=== PATIENT | female | born 1950 | race Caucasian/White ===

== ENCOUNTER 2023-12-25 22:09 | Emergency (ER) | payer MEDICARE, SELFPAY ==
--- NOTE | ~2023-12-25 | CT_ITS ---
EXAMINATION: CT angio head neck CT/CT angio head neck FINDINGS/IMPRESSION: The ordered CT angiogram examination could not be performed due to contrast extravasation. No images were obtained.
--- NOTE | ~2023-12-25 | CT_ITS ---
EXAMINATION: NONCONTRAST HEAD CT NONCONTRAST CERVICAL SPINE CT INDICATION INFORMATION: Head and neck trauma COMPARISON: None TECHNIQUE: Separate noncontrast CT examinations of the head and cervical spine were performed. Coronal head CT images and coronal and sagittal cervical spine images were created at the technologist workstation. DLP: 1150 mGy-cm DOSE LOWERING TECHNIQUES: This CT examination was performed using dose optimization techniques as appropriate, variously including the following: - Automated exposure control - Adjustment of mA and/or kV according to patient size (this includes techniques or standardized protocols for targeted exams were dose is matched to indication/reason for exam; i.e. extremities or head) - Use of iterative reconstruction technique FINDINGS: Head: Bilateral predominantly frontal subdural hematomas are present, measuring up to approximately 6 mm in thickness on the left and 4 mm in thickness on the right. Mild extension along the right parafalcine falx superiorly. Relatively symmetric subarachnoid hemorrhage is also present bilaterally, predominantly in the frontal lobes. There is intraparenchymal hemorrhage in the inferior right cerebellum measuring approximately 20 mm in diameter with mild surrounding edema. There is no evidence of acute territorial infarction. No significant mass-effect or midline shift is seen. Bañuelos to white matter differentiation is well preserved. The ventricles are normal in size. There is mild periventricular white matter hypoattenuation consistent with chronic small vessel ischemic disease. There is a nondisplaced right occipital bone fracture. Mild mucosal thickening of the right maxillary sinus. The mastoid air cells are well-aerated. Cervical spine: There is grade 1 anterolisthesis of C3 on C4 and C4 on C5, favored to be chronic/degenerative in nature. Vertebral body heights are maintained. Severe bilateral multilevel facet arthropathy. There is disc space narrowing and endplate osteophyte formation in the lower cervical spine. No evidence of acute fracture. No prevertebral soft tissue swelling. Visualized portions of the lung apices are unremarkable. The thyroid gland is heterogeneous, suboptimally assessed due to artifact. CT/CT cervical spine wo IV con IMPRESSION: HEAD: Bilateral, predominantly frontal subdural hematomas and bilateral subarachnoid hemorrhage. Intraparenchymal hemorrhage in the inferior right cerebellum. Nondisplaced right occipital bone fracture. CERVICAL SPINE: No acute findings identified. Multilevel degenerative changes. This critical result was discussed with Dr. Sandra Devries on 12/26/2023 1:05 AM, and it was ascertained that the content and urgency of the report was understood at the time of direct communication.
--- NOTE | 2023-12-25 22:24 | MHC.EDTECH ---
PATIENT WAS BIBA FROM WORK ,VITALS TAKEN AND BLOOD SUGAR CHECK .
[2023-12-25 22:27] VITALS: BP 154/94; BP 155/83; PULSE 92; PULSE 93; RESP 16; TEMP 36.6; O2SAT 95; BMI 35.7
--- NOTE | 2023-12-25 22:48 | ECG_ITS ---
Test Reason : SYNCOPEE Blood Pressure : / mmHG Vent. Rate : 097 BPM Atrial Rate : 097 BPM P-R Int : 184 ms QRS Dur : 086 ms QT Int : 364 ms P-R-T Axes : 057 -25 043 degrees QTc Int : 462 ms Normal sinus rhythm Normal ECG No previous ECGs available Referred By: Sandra Devries Electronically Signed By:Eron Evans
[2023-12-25 22:51] LABS: Glucose, Whole Blood 179 mg/dL (60-115)
--- NOTE | 2023-12-25 23:03 | ED_ITS ---
HPI - Syncope General Chief Complaint: Syncope Stated Complaint: syncopal episode, +headstrike,+loc Time Seen by Provider: 12/25/23 22:39 Source: patient, family and EMS Mode of arrival: EMS Limitations: no limitations History of Present Illness HPI narrative: 73 yo female with PMH of DM not on thinners had lower dental extraction today with implant done today (local no anesthesia) she took an aspirin due to the pain. She noted it was oozing mildly and she kept tasting the blood which she thinks was making her queasy. 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 She started to feel dizzy and had syncopal episode. + LOC pos head strike unknown downtime. Denies preceding CP/SOB. Currently feels fine. 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[employer]) Prodromal symptoms: lightheaded and nausea/vomiting Witnessed: No Context: standing up Injuries sustained associated with event: head Current symptoms: none History: other (had tooth extraction today) Treatments prior to arrival: none Related Data Allergies Allergy/AdvReac Type Severity Reaction Status Date / Time codeine Allergy Nausea and Verified 12/25/23 22:30 Vomiting ibuprofen Allergy Hives Verified 12/25/23 22:30 Review of Systems 2 Review of Systems: Constitutional : No Fever, No Chills, No Fatigue ENT/Mouth : No sore throat, No Rhinorrhea Eyes: No Eye Pain, No Swelling, No Redness Cardiovascular : No Chest Pain, No SOB, No Dyspnea on Exertion Respiratory : No Cough, No Sputum Gastrointestinal : No Nausea, No Vomiting, No Diarrhea, No abdominal Pain Genitourinary : No Dysuria, No Urinary Frequency, No Hematuria, Musculoskeletal : No joint pain, No Myalgias, No Joint Swelling Skin : No Skin Lesions, No rash Neuro : No Weakness, No Numbness, No Dizziness, no Headache, pos syncope Psych : No Anxiety/Panic, No Depression All other systems reviewed and are negative [facility] Past Medical History Attestation statement: The following information was validated with the patient. Medical History Diabetes Social History Social History (Updated 12/25/23 @ 23:07 by Sandra Devries DO) Patient Tobacco Use Status: Never used Tobacco Advance Directives: No Advance Directives Information Provided: Yes Do you have a plan to hurt others: No Plan Physical Exam 2 Vital Signs: Vital Signs: Last Vital Signs Temp 97.6 F 12/26/23 00:42 Pulse 106 H 12/26/23 00:47 Resp 13 12/26/23 00:47 BP 142/63 H 12/26/23 00:47 Pulse Ox 94 12/26/23 00:47 O2 Del Method Room Air 12/26/23 00:47 BMI result Body Mass Index 35.7 Appearance: Alert. Oriented X3. No acute distress. Playing candy [employer] game on phone Eyes: Pupils equal, round and reactive to light. ENT: Pharynx normal. Hematoma to occipital area no lacerations noted lower tooth from extraction scant to trace area of blood noted Neck: Normal inspection. Neck supple. collar in place no midline ttp CVS: Normal heart rate and rhythm. Pulses normal. Chest: no ttp Respiratory: No respiratory distress. Breath sounds normal. Abdomen: Soft and nontender. Skin: Skin warm and dry. Normal skin color. Normal skin turgor. Extremities: No lower extremity edema. No calf ttp Neuro: Oriented X 3. No motor deficit. No sensory deficit. GCS 15 NIH Stroke Scale Internal: Initial- Upon Arrival Level of Consciousness: Alert Level of Consciousness Questions: Answers both questions correctly Level of Consciousness Commands: Performs both tasks correctly Best Gaze: Normal Visual: No visual loss Facial Palsy: Normal Motor Arm (Right): No drift Motor Arm (Left): No drift Motor Leg (Right): No drift Motor Leg (Left): No drift Limb Ataxia: Absent Sensory: Normal Best Language: No aphasia Dysarthia: Normal Extinction and Inattention: No abnormality Score: 0 Course Course Course Narrative: call to [facility] 1128pm given ICH she is GCS 15 has SAH in frontal lobes but also R cerebellum there is a bleed IPH which seems odd for trauma she reports feeling fine all day today no prior headaches or issues Reevaluation(s) Reevaluation #1: son is here notes mom had an episode 2 weeks ago of severe dizziness and vomiting left work symptoms went away and she has been fine since patient denies headaches or dizziness this could have been cerebellar lesion Reevaluation #2: call back from [facility] 1159pm trauma unavailable at this time call to ED Attending Zulay - accepts to the ED. aware of nicardipine gtt. no trauma activation. spoke to RN goal BP 140 systolic Reevaluation #3: obtained CTA prior to transfer radio electrician to upload to trauma box Additional Reevaluation(s): IV blew in CTA I placed another in CT scanner L AC no issues - she vomited denies headaches still GCS 15 at this time EMS is here will delay transfer I am also going to give her IV keppra along with nicardipine, zofran ordered 1240am BP 140/60s on transfer still no call from our radiology team unable to get CTA prior to DC after vomiting still awake and answering questions c/o mild headache now. Consultations Consultation #1: 105am call from Radiology - SAH bilateral SDH frontal 6mm and 4mm on right symmetric SAH mostly frontal lobe, IPH R cerebellum localized edema nondisplaced R occipital bone fracture cervical spine negative for fracture. delayed read on CT scans after multiple calls Medications Administered Generic Name Dose Route Start Last Admin Trade Name Freq PRN Reason Stop Dose Admin Nicardipine HCl 25 mg/ Sodium 260 mls @ 0 mls/hr 12/25/23 23:45 12/26/23 00:14 Chloride IVCONT 5 mg/hr .Q0M POLLY 52 mls/hr Administration Protocol Per Protocol Discontinued Medications Generic Name Dose Route Start Last Admin Trade Name Freq PRN Reason Stop Dose Admin Sodium Chloride 500 mls @ 500 mls/hr 12/25/23 23:00 12/25/23 23:29 Ns IV 12/25/23 23:59 500 mls/hr .Q1H ONE Administration Levetiracetam 1,000 mg in 100 mls @ 400 mls/hr 12/26/23 00:39 12/26/23 01:03 Keppra IV 12/26/23 00:53 Infused ONCE ONE Infusion Tranexamic Acid 500 mg 12/25/23 23:00 12/25/23 23:32 Tranexamic Acid 1,000 Mg/10 Ml Vial IRRIGATION 12/25/23 23:01 500 mg ONCE ONE Administration Medical Decision Making Medical Decision Making MDM Narrative: 73 yo female with PMH of DM here after syncopal episode with prodrome of nausea and dizziness no preceding CP/SOB was standing when it happened - occurred after having dental extraction today and reported scant oozing of blood from tooth and getting nauseated from tasting blood. She did take aspirin today but not on thinners. She still has trace ooze. At this time labs, EKG, troponin x 2 ordered, CT head/neck given trauma and age, ortho VS, IVF, oral tranexamic acid to help with any further transient bleeding given her story it sounds more consistent with vasovagal syncope and not cardiac or VTE. Differential Diagnosis Differential Diagnoses: The differential diagnosis associated with the presentation includes dehydration, vasovagal syncope, anemia, head injury Admission/Observation Consideration of admission/observation: Escalation of care including admission/observation considered transfer to tertiary center Consult Healthcare Provider Management of the patient was discussed with: Loom Fixer Lab Data [facility] Lab Attestation statement: I reviewed the patient's lab results. 12/25/23 23:16 12/25/23 23:16 Labs: Lab Results 12/25/23 12/25/23 Range/Units 22:23 23:16 WBC 9.0 (4.8-10.8) X10*3/uL RBC 4.99 (4.20-5.50) X10*6/uL Hgb 15.1 (12.0-16.0) g/dl Hct 44.6 (37.0-47.0) % MCV 89.4 (80.0-98.0) fL MCH 30.3 (27.0-33.0) pg MCHC 33.9 (31.0-35.0) g/dl RDW 13.8 (11.0-16.0) % Plt Count 168 (160-400) X10*3/uL MPV 10.3 (9.4-12.3) fL Immature Gran % (Auto) 0.3 (0.0-0.4) % Neut % (Auto) 75.5 H (45-73) % Lymph % (Auto) 13.7 L (20-40) % Gage % (Auto) 7.2 (2-11) % Eos % (Auto) 2.7 (0-4) % Baso % (Auto) 0.6 (0-2) % Lymph # (Auto) 1.2 (1.2-4.9) X10*3/uL Gage # (Auto) 0.7 (0.1-1.2) X10*3/uL Eos # (Auto) 0.2 (0.0-0.4) X10*3/uL Baso # (Auto) 0.1 (0.0-0.2) X10*3/uL Abs Immat Gran (auto) 0.03 (0.00-0.03) X10*3/uL Absolute Neuts (auto) 6.8 (2.0-8.3) x10*3/uL Absolute Nucleated RBC 0.000 (0.0-0.012) X10*3/uL Nucleated RBC % (auto) 0.0 (0.0-0.2) /100WBC PT 11.7 (11.1-13.3) SEC INR 1.0 (0.9-1.1) Sodium 142 (135-145) mmol/L Potassium 4.3 (3.3-5.1) mmol/L Chloride 106 (96-108) mmol/L Carbon Dioxide 22 (22-29) mmol/L Anion Gap 18 (12-20) BUN 15 (9-16) mg/dL Creatinine 0.99 (0.5-1.4) mg/dL Estim Creat Clear Calc 53.0 Estimated GFR 55 POC Glucose 179 H (60-115) mg/dL Random Glucose 175 H (60-115) mg/dL Calcium 10.4 H (8.4-10.2) mg/dL Magnesium 1.9 (1.6-2.6) mg/dL Total Bilirubin 1.7 H (0.0-1.0) mg/dL Direct Bilirubin 0.5 (0.0-0.5) mg/dL AST 51 H (5-31) U/L ALT 43 H (0-31) U/L Alkaline Phosphatase 66 (39-117) U/L Total Creatine Kinase 272 H (26-140) U/L Troponin I High Sens < 2.7 (<3.5-17.0) ng/L Total Protein 7.4 (6.5-8.0) g/dL Albumin 4.3 (3.5-5.0) g/dL Lipase 29 (8-78) U/L Independent Interpretation I performed an independent interpretation of an: EKG and CT Scan (no shift SAH, R cerebellum IPH) Interpretation: Rate: 97 Rhythm: NSR Ward: left Normal P waves. Normal TIMOTHY. Normal QRS complex. ST T wave : no ANAI, normal qTC: 462 prior studies: no acute ischemia The study has been interpreted contemporaneously by me. . Radiology Impression Discussion of test interpretation with radiology: I have reviewed the radiologist's reading. Independent Historian Clinical information obtained from an independent historian. History obtained from or confirmed by: EMS Procedures EJ/Peripheral Line Arm R: Time Out Performed: Yes Skin Cleansed in Sterile Fashion: Yes Size (gauge): 20 IV Secured and Dressing Applied: Yes Patient Tolerated Procedure: well and no complications Additional Comments: US guided Arm L: Time Out Performed: Yes Skin Cleansed in Sterile Fashion: Yes Size (gauge): 20 IV Secured and Dressing Applied: Yes Patient Tolerated Procedure: well and no complications Additional Comments: US guided Critical Care Time Critical Care Time Critical Care Time: Yes Total Critical Care Time: 60 Attestation: discussion with family, consult, transfer to tertiary center, nicardipine gtt I attest to this time spent taking care of the patient Discharge Plan Discharge Clinical Impression: SAH (subarachnoid hemorrhage) Syncope Qualifiers: Syncope type: unspecified Qualified Code(s): R55 - Syncope and collapse Traumatic intraparenchymal hemorrhage Qualifiers: Encounter type: initial encounter Loss of consciousness presence/duration: with LOC of unspecified duration Qualified Code(s): S06.309A - Unspecified focal traumatic brain injury with loss of consciousness of unspecified duration, initial encounter Patient Disposition: [facility] Transfer Details: [facility] Print Language: Nicaraguan
[2023-12-25 23:21] LABS: MANUAL DIFF FLAG NO
[2023-12-25 23:22] LABS: Basophils Absolute Auto 0.1 X10*3/uL (0.0-0.2); Basophils Percent Auto 0.6 % (0-2); Eosinophils Absolute Auto 0.2 X10*3/uL (0.0-0.4); Eosinophils Percent Auto 2.7 % (0-4); Hematocrit 44.6 % (37.0-47.0); Hemoglobin 15.1 g/dl (12.0-16.0); Imm Gran Abs Auto 0.03 X10*3/uL (0.00-0.03); Imm Gran Pct Auto 0.3 % (0.0-0.4); Lymphocytes Absolute Auto 1.2 X10*3/uL (1.2-4.9); Lymphocytes Percent Auto 13.7 % (20-40); Mean Corpuscular HGB Conc 33.9 g/dl (31.0-35.0); Mean Corpuscular Hemoglobin 30.3 pg (27.0-33.0); Mean Corpuscular Volume 89.4 fL (80.0-98.0); Mean Platelet Volume 10.3 fL (9.4-12.3); Monocytes Absolute Auto 0.7 X10*3/uL (0.1-1.2); Monocytes Percent Auto 7.2 % (2-11); Neutrophils Absolute Auto 6.8 x10*3/uL (2.0-8.3); Neutrophils Percent Auto 75.5 % (45-73); Platelet Count 168 X10*3/uL (160-400); Red Blood Count 4.99 X10*6/uL (4.20-5.50); Red Cell Distribution Width 13.8 % (11.0-16.0)
--- NOTE | 2023-12-25 23:24 | MHC.EDTECH ---
PATIENT EKG TAKEN AND WAS READ BY PROVIDER ,BLOOD DRAWN AND SENT TO LAB .
--- NOTE | 2023-12-25 23:25 | MHC.EDTECH ---
PROVIDER ANSON SAID NOT TO DO ORTHOSTATICS VITALS UNTIL CT SCAN RESULT ARE BACK .
[2023-12-25] MEDS: 0.9 % Sodium Chloride 500 ML IV (23:29)
[2023-12-25 23:30] LABS: Prothrombin Time 11.7 SEC (11.1-13.3)
[2023-12-25] MEDS: Tranexamic Acid 1,000 MG/10 ML VIAL 500 MG IRRIGATION (23:32)
--- OUTSIDE RECORDS SUMMARY | 2023-12-25 23:34 | XMS_ITS | Continuity of Care Document ---
Author Organization [facility] ter Address [address] [place] [id number]- Encounter [facility] Date(s): 10/08/19 - 10/08/[address] [id number]- [facility] Attending Physician: Not on Staff, Attending
[2023-12-25 23:37] LABS: Alanine Aminotransferase 43 U/L (0-31); Albumin Level 4.3 g/dL (3.5-5.0); Alkaline Phosphatase 66 U/L (39-117); Anion Gap 18 (12-20); Aspartate Amino Transferase 51 U/L (5-31); Bilirubin Direct 0.5 mg/dL (0.0-0.5); Bilirubin Total 1.7 mg/dL (0.0-1.0); Blood Urea Nitrogen 15 mg/dL (9-16); Calcium 10.4 mg/dL (8.4-10.2); Carbon Dioxide 22 mmol/L (22-29); Chloride 106 mmol/L (96-108); Estimated Glomerular Filt Rate 55; Glucose Random 175 mg/dL (60-115); Lipase 29 U/L (8-78); Magnesium 1.9 mg/dL (1.6-2.6); Potassium 4.3 mmol/L (3.3-5.1); Sodium 142 mmol/L (135-145); Total Protein 7.4 g/dL (6.5-8.0)
[2023-12-25 23:44] LABS: Troponin-I High Sensitivity < 2.7 ng/L (<3.5-17.0)
[2023-12-26 00:14] VITALS: BP 191/97; PULSE 99
[2023-12-26] MEDS: niCARdipine HCL 25 MG in 0.9 % Sodium Chloride 250 ML 52 MG IVCONT (00:14)
[2023-12-26 00:42] VITALS: BP 169/83; PULSE 105; RESP 16; TEMP 36.4; O2SAT 93
[2023-12-26] MEDS: levETIRAcetam in NaCl (iso-os) 1,000 MG/100 ML PIGGYBACK 400 MG IV (00:42)
[2023-12-26 00:47] VITALS: BP 142/63; PULSE 106; RESP 13; O2SAT 94
--- NOTE | 2023-12-26 01:08 | PC.NURSE ---
Attempted to reach RN for Nurse to Nurse. Called [phone]. Line continued to ring- no answer
[2023-12-26 02:39] VITALS: BP 169/83; PULSE 105; RESP 16; TEMP 36.4; O2SAT 93
== END 2023-12-26 01:15 | disposition short-term general hospital (02) ==
PROVIDERS: Emergency Provider Emergency Medicine
DX: S06.6XAA Traumatic subarachnoid hemorrhage with loss of consciousness status unknown, initial encounter (principal); W18.30XA Fall on same level, unspecified, initial encounter; Y93.89 Activity, other specified; Y92.9 Unspecified place or not applicable; Y99.0 Civilian activity done for income or pay; R55 Syncope and collapse; R11.2 Nausea with vomiting, unspecified
CPT/HCPCS: 36415; 70450; 70496; 70498; 72125; 80048; 80076; 82550; 82947; 83690; 83735; 84484; 85025; 85610; 93005; 96365; 99285; J1953; J2404

== ENCOUNTER → 2023-12-25 22:48 | Outpatient (BNV) | payer MEDICARE, SELFPAY | PROVIDERS: Emergency Provider Emergency Medicine; Visit Provider Internal Medicine Cardiovascular Disease | DX: R55 Syncope and collapse (principal) | CPT/HCPCS: 93010 ==